=== PATIENT | female | born 2000 | race Caucasian/White ===

== ENCOUNTER 2022-12-16 11:39 | Emergency (ER) | payer BC, SELFPAY ==
[2022-12-16 11:45] VITALS: BP 133/79; PULSE 109; RESP 18; TEMP 36.1; O2SAT 100; BMI 22.1
--- NOTE | 2022-12-16 11:45 | ED_ITS ---
HPI - Headache General Chief Complaint: Head Injury Stated Complaint: concussion? Time Seen by Provider: 12/16/22 11:46 Source: patient Mode of arrival: ambulatory Limitations: no limitations History of Present Illness HPI Narrative: Reports 2 nights ago she struck her head against a brick wall that her bed is against. Denies loss of conciousness. Complaining of a headache since then, foggy , mild intermittnet nausea. Denies vision changes, dizziness, lightheadedness, fevers, chills, neck pain, neck stiffness, vomiting. Denies use of anticoagulants, bleeding disorders. Related Data Allergies Allergy/AdvReac Type Severity Reaction Status Date / Time No Known Allergies Allergy Verified 12/16/22 11:48 Review of Systems Review of Systems: Constitutional : No Fever, No Chills, No Fatigue ENT/Mouth : No sore throat, No Rhinorrhea Eyes: No Eye Pain, No Swelling, No Redness Cardiovascular : No Chest Pain, No SOB, No Dyspnea on Exertion Respiratory : No Cough, No Sputum Gastrointestinal : No Nausea, No Vomiting, No Diarrhea, No abdominal Pain Genitourinary : No Dysuria, No Urinary Frequency, No Hematuria, Musculoskeletal : No joint pain, No Myalgias, No Joint Swelling Skin : No Skin Lesions, No rash Neuro : No Weakness, No Numbness, No Dizziness, positive Headache Psych : No Anxiety/Panic, No Depression Heme/Lymph: No Bruising, No Bleeding,No Lymphadenopathy Endocrine : No Polyuria, No Polydipsia Yes all other systems are reviewed and are negative [facility] Past Medical History Attestation statement: The following information was validated with the patient. Source: old records reviewed Social History Social History Advance Directives: No Advance Directives Information Provided: No Physical Exam Vital Signs: Vital Signs: Last Vital Signs Temp 97.0 F 12/16/22 11:45 Pulse 109 H 12/16/22 11:45 Resp 18 12/16/22 11:45 BP 133/79 12/16/22 11:45 Pulse Ox 100 12/16/22 11:45 O2 Del Method 12/16/22 11:45 BMI result Body Mass Index 22.1 Appearance: Alert.?Oriented to person, place and time. No acute distress.?Normal affect. Head: Normocephalic, atraumatic Eyes: Pupils equal, round and reactive to light. EOMI. No nystagmus. No tenderness to palpation over the temporal region. No racoon eyes. ENT: External auditory canal normal tympanic membrane pearly dunne and intact bilaterally. Oropharynx normal. No king sign Neck: Normal inspection.? Neck supple. CVS: Heart sounds normal. Normal heart rate and rhythm.? Pulses normal.?? Respiratory: No respiratory distress.? Lung sounds clear to auscultation bilaterally?? Abdomen: Soft and non-tender. Skin: Skin warm and dry.? Normal skin color.? ?? Extremities: No lower extremity edema.? Neuro: Moves all extremities spontaneously. Sensation intact bilaterally. CN II- XII intact. No focal neuro deficits. Ambulatory with steady gait. Medical Decision Making Medical Decision Making MDM Narrative: Patient is a 22-year-old female with no reported past medical history presenting to emergency department for evaluation of headache after head injury. Symptoms at this time most consistent with a concussion. No focal neurological deficits. No high-risk past medical history that would warrant CT imaging at this time. No obvious deformity. Not consistent with skull fracture, ICH/SAH/SDH. Ambulatory with a steady gait. Speaking clear full sentences. Discussed expecting symptoms of concussion, management, and worrisome signs and symptoms that would warrant re-evaluation in the emergency department. All questions answered. Patient departed in stable condition. Differential Diagnosis Differential Diagnoses: The differential diagnosis associated with the presentation includes (As noted above) Independent Historian Clinical information obtained from an independent historian. History obtained from or confirmed by: Friend (Friend is present who confirms history) Tests considered The following testing was considered but not selected: Head CT considered but deferred as noted above Prescription Management I considered prescription management with: Pain Medication (Advised OTC acetaminophen/ibuprofen) Discharge Plan Discharge Clinical Impression: Concussion Patient Disposition: Home, Self-Care Instructions: Concussion (ED) Additional Instructions: As we discussed, your symptoms are consistent with a concussion after your recent head injury. Your physical exam today was normal at this time there is no indication for any x-ray or CT. You can take ibuprofen 200 mg, 3 tablets (600mg) every 6-8 hours as needed for pain, in addition to Tylenol 500 mg, 2 tablets (1,000mg) every 4-6 hours as needed for pain, but not to exceed 3 doses daily (3,000mg). Please follow-up with your primary care provider as needed for persistent symptoms. Return back to emergency department any new or worsening symptoms or concerns ? Referrals: Physician,None [Primary Care Provider] - Interventions: ED Discharge Assessment Last Done: 12/16/22 12:03 Discharge Date/Time: 12/16/22 12:05
== END 2022-12-16 12:05 | disposition home or self-care (01) ==
PROVIDERS: Emergency Provider Emergency Medicine
DX: S06.0XAA Concussion with loss of consciousness status unknown, initial encounter (principal); S06.0X0A Concussion without loss of consciousness, initial encounter; Y29.XXXA Contact with blunt object, undetermined intent, initial encounter; Y93.9 Activity, unspecified; Y92.003 Bedroom of unspecified non-institutional (private) residence as the place of occurrence of the external cause; Y99.9 Unspecified external cause status
CPT/HCPCS: 99282